=== PATIENT | female | born 1995 | race Caucasian/White ===

== ENCOUNTER → 2016-04-23 | Outpatient (CLI) | payer BC | END | disposition home or self-care (01) | LOC: GMA 16:28 | PROVIDERS: ATTEND Nurse Practitioner Family | DX: Z57.9 Occupational exposure to unspecified risk factor (principal) ==

== ENCOUNTER → 2017-12-20 | Outpatient (CLI) | payer OTHER | LOC: GMAM 12:16 | PROVIDERS: ATTEND Nurse Practitioner Acute Care | DX: N94.10 Unspecified dyspareunia (principal) ==

== ENCOUNTER → 2017-12-21 | Outpatient (CLI) | payer OTHER ==
--- NOTE | 2017-12-21 18:02 | US ---
EXAM DESCRIPTION: Pelvis Transvaginal: Ultrasound. CLINICAL HISTORY: PELVIC AND PERINEAL PAIN COMPARISON: None. TECHNIQUE: Endovaginal scanning; [place]-scale and Doppler modes. FINDINGS: Uterus 7.0 x 3.5 x 2.6 cm. Endometrial thickness is 2.6 mm. Myometrium appears heterogeneous. 1.3 x 1.2 x 0.7 cm mass on the anterior fundus slightly hypoechoic. Uterus not retroflexed. Cervix unremarkable. Cul-de-sac contains no fluid. Right ovary 2.2 x 1.8 x 1.0 cm. Normal color Doppler vascularity. Two, 6 mm follicles, but no cysts. No adnexal mass or free fluid. Left ovary 1.1 x 1.0 x 0.7 cm . Normal color Doppler vascularity. 8 mm follicle but no cysts. No adnexal mass or free fluid. IMPRESSION: 1. Normal size and position of the uterus. 1.3 cm fibroid in the anterior fundus. No endometrial thickening or fluid. No fluid in the cul-de-sac. 2. Bilateral ovarian follicles less than 1 cm diameter. No cysts. No enlargement. No adnexal mass or fluid. Electronically signed by: Silvestre Singer MD 12/21/2017 5:57 PM CDT
== END ==
LOC: US 09:46
PROVIDERS: ATTEND Nurse Practitioner Acute Care
DX: N94.89 Other specified conditions associated with female genital organs and menstrual cycle (principal); R10.2 Pelvic and perineal pain